=== PATIENT | male | born 1955 | race Caucasian/White ===

== ENCOUNTER 2018-10-30 07:58 | Inpatient (IN) ==
[2018-10-30] MEDS ORDERED: NS 1,000 ML ONE (08:30)
[2018-10-30] MEDS ORDERED: NS 1,000 ML IV ONE (08:50)
[2018-10-30] MEDS ORDERED: PROTONIX 80 MG in NS 80 ML IV ONE (08:50)
--- NOTE | 2018-10-30 08:51 | PROVIDER DOCUMENTATION ---
HPI-Abdominal Pain/GI Problem - General Chief Complaint: GI Bleed Stated Complaint: PASSING BLOOD DR ELIZABETH MEETING HIM Time Seen by Provider: 10/30/18 08:26 Allergies/Adverse Reactions: Patient Allergies Allergy/AdvReac Type Severity Reaction Status Date / Time midazolam HCl * [From Versed] Allergy Mild dysphoria Verified 10/30/18 08:37 Home Medications: Home Medication List Medication Instructions Recorded Confirmed Last Taken Type Losartan [Cozaar] 50 mg PO DAILY 11/22/12 10/30/18 02/28/16 History Lansoprazole [Prevacid] 30 mg DAILY 02/28/16 10/30/18 02/28/16 History Allopurinol [Zyloprim] 300 mg PO DAILY 10/30/18 10/30/18 Unknown History Hydrocodone/Acetaminophen [[place] 1 ea PO Q6HR PRN 10/30/18 10/30/18 Unknown History 5-325 Tablet] Warfarin [Coumadin] 7.5 mg PO QHS 10/30/18 10/30/18 10/29/18 History - History of Present Illness-ABD Nature of Presenting Problems: 63 yo male, 2 weeks s/p Mitral Valve replacement at [facility] on coumadin 7.5 mg po daily, complains of acute onset of BRBPR with clots. Patient has some mild generalized abdominal pain and light headedness. No n/v. 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 Elizabeth who is meeting him here Abdominal Pain Onset Location: reports: generalized abdomen Pain Radiation: reports: no radiation Quality of Pain: reports: aching Severity in ED: reports: mild Onset/Duration: reports: 1-3 hours ago Timing: reports: still present Activities at Onset: reports: light activity Exposure to sick contacts?: No Modifying Factors: improves with: nothing Associated Symptoms: reports: nausea Last BM: this morning Dark Stools Present?: reports: bright red blood Rectal Bleeding: reports: bleeding without stool, blood mixed with stool # of Diarrhea Episodes: 3 Rectal Pain: reports: none Emesis Description: reports: none Bruising or Bleeding Gums?: Yes Similar Symptoms Previously?: No Recently seen or treated by another doctor?: Yes (CT surgery at [facility]) Review of Systems - Adult - REVIEW OF SYSTEMS - ADULT Constitutional: reports: no symptoms reported Eyes: reports: no symptoms reported Ears, Nose, Mouth & Throat: reports: no symptoms reported Cardiovascular: reports: no symptoms reported Respiratory: reports: no symptoms reported Gastrointestinal: reports: no symptoms reported Genitourinary: reports: no symptoms reported Musculoskeletal: reports: no symptoms reported Integumentary: reports: no symptoms reported Neurological: reports: no symptoms reported Psychiatric: reports: no symptoms reported Endocrine: reports: no symptoms reported Hematologic/Lymphatic: reports: no symptoms reported Allergic/Immunologic: reports: no symptoms reported All Other Systems: Reviewed and Negative Past History - Adult - PAST MEDICAL HISTORY-ADULT Review of Records: reports: Old Records Reviewed, Nursing Assessment Review, Medications Reviewed, Social history reviewed & non-contributory. Major Childhood Illnesses: reports: denies history Cardiovascular: reports: A-Fib, HTN, heart valve problem, hyperlipidemia Respiratory: reports: denies history Gastrointestinal: reports: denies history Obstetrical/Gynecological: reports: denies history Genitourinary: reports: denies history Musculoskeletal: reports: denies history Neurological: reports: denies history Endocrine/Immune: reports: denies history Other Conditions: reports: denies history - PRIOR SURGERIES/PROCEDURES Surgical/Procedure History: reports: other (Heart valve replacement at [facility] 2 wek s ago) - IMMUNIZATION STATUS Childhood Immunizations: UTD Flu Vaccine: UTD - FAMILY HISTORY Family History: reviewed, not pertinent - SOCIAL HISTORY Smoking: non-smoker Substance Use: none/never Alcohol Use Frequency: rarely Living Situation: family Physical Exam-General - PHYSICAL EXAM-ADULT Initial Vital Signs Reviewed: Yes (VSSAF) - CONSTITUTIONAL General Appearance: appears well, alert, anxious - EYES Eyes: PERRL/EOMI, pink conjunctivae - HEAD, EARS, NOSE, MOUTH & THROAT HENMT: normocephalic/atraumatic, moist mucous membranes, normal ENT inspection, pharynx normal - NECK Neck: non-tender, full range of motion, supple, normal inspection - RESPIRATORY Respiratory: lungs clear, normal breath sounds, no pleuratic chest pain, no respiratory distress, no accessory muscle use, other (Midline sternotomy incision healing well, epigastric wounds from chest tubes oozing serosanguionous discharge, but no redness/pain) - CARDIOVASCULAR Cardiovascular: normal peripheral pulses, regular rate, rhythm, no edema, other (metallic click present) - GASTROINTESTINAL (ABDOMEN) Abdominal Exam: non tender, soft, no organomegaly, abnormal bowel sounds (hyperactive) - LYMPHATIC Lymphatic: no adenopathy - MUSCULOSKELETAL Back Exam: normal inspection Extremity: normal range of motion, non-tender, normal gait, normal inspection, no pedal edema, no calf tenderness - SKIN Integumentary: normal color, normal turgor, warm/dry - NEUROLOGIC Neurologic: spa associate II-XII nml as tested, grossly normal, no motor/sensory deficits - PSYCHIATRIC Psych/Mental Status: normal mood/affect, normal thought content, normal thought process, oriented x 3 Progress - PLAN OF CARE/RESULTS Progress/Plan/Lab Results: Vital Signs - 8 hr 10/30/18 08:02 Temperature 97.9 F Pulse Rate 81 Respiratory Rate 22 Blood Pressure 132/84 O2 Sat by Pulse Oximetry 99 Orders Category Date Time Status Admit - [facility] Routine AdmDCTranf 10/30/18 08:33 Active CHEST-PORTABLE [RAD] Stat Exams 10/30/18 08:30 Ordered CBC WITH DIFF [HEME] Stat Lab 10/30/18 08:21 Results COMPREHENSIVE METABOLIC PANEL [CHEM] Stat Lab 10/30/18 08:32 Received OCCULT BLOOD DIAGNOSTIC [STOOL] Urgent Lab 10/30/18 08:21 Received PROTIME WITH INR [COAG] Stat Lab 10/30/18 08:21 Received PTT [COAG] Stat Lab 10/30/18 08:21 Received TYPE & SCREEN [BBK] Stat Lab 10/30/18 08:21 Received 0.9% Sodium Chloride Inj [Ns] 1,000 ml Med 10/30/18 08:30 Discontinued .ROUTE As directed Result Diagrams: 10/30/18 08:21 10/30/18 08:21 - REASSESSMENT Reassessment #1 Time Reassessed: 09:24 Status: improving (GIven IVF and protonix. Seen on arrival by Dr. Elizabeth, who is admitting and has consulted with Dr. Knott and Franky.) - EKG 1 Time of EKG reading by physician:: 09:25 EKG Read and Signed by:: Tej Lozano EKG Interpretation (*Must complete 3 of following elements*): Abnormal Rate: 78 Rhythm: nsr [place]: normal QRS: other (left hemiblock, biatrial enlargement, early transition) MS Interval: normal ST Wave: normal Departure - Departure Date of Disposition Decision: 10/30/18 Time of Disposition Decision: 09:26 DIAGNOSIS: Anticoagulated on Coumadin GI bleeding Qualifiers: GI bleed type/associated pathology: unspecified gastrointestinal hemorrhage type Qualified Code(s): K92.2 - Gastrointestinal hemorrhage, unspecified Disposition: ADMITTED INPATIENT 09 Certified Medical Emergency: Emergent Condition: Fair - Critical Care Note This patient required my direct & personal management of CC.: No Attestation - Physician/ PASCUAL Attestation Patient care was provided by Advanced Practice Provider:: No The physician spent face to face time with patient:: Yes Advanced Practice Provider documentation review:: Supervising physician onsite and consulted in the evaluation and care of this patient. The physician did have a face to face encounter with the patient.
--- NOTE | 2018-10-30 08:54 | Diag Imaging Result Doc PS360 ---
EXAM: CHEST-PORTABLE INDICATION: Recent surgery TECHNIQUE: One view COMPARISON: 09/14/2018 FINDINGS: The lungs are grossly clear. There is no discrete pleural fluid collection or pneumothorax. Median sternotomy wires and a prosthetic heart valve are noted. Cardiac silhouette is within normal limits. Central vasculature is unremarkable. IMPRESSION: No evidence of acute pathology by plain radiograph. Electronically signed by Brendon Nguyen 10/30/2018 8:52 AM
[2018-10-30 08:56] LABS: BASO# 0.11 X1000 (0.0-0.2); BASO% 1.1 % (0.0-0.8); EOS# 1.36 X1000 (0.0-0.7); EOS% 13.2 % (0.0-10.0); HEMATOCRIT 40.3 % (42.0-52.0); HEMOGLOBIN 13.1 g/dL (14.0-18.0); IMM GRAN# 0.07 X1000 (0.0-0.04); IMM GRAN% 0.7 % (0.0-0.5); LYMPH# 1.26 X1000 (1.2-3.4); LYMPH% 12.3 % (20.5-51.1); MCH 27.9 PG (27-31); MCHC 32.5 g/dL (33-37); MCV 85.9 FL (81-99); MONO% 7.8 % (1.7-9.3); MPV 8.9 FL (7.4-10.4); NEUT# 6.67 X1000 (1.4-6.5); NEUT% 64.9 % (42.2-75.2); PLT 444 X1000 (130-400); RBC 4.69 XMIL (4.7-6.1); RDW 14.6 % (11.5-14.5); WBC 10.27 X1000 (4.8-10.8)
[2018-10-30 09:07] LABS: INR 4.37; PROTIME 44.7 Seconds (11.0-16.0); PTT 96.9 Seconds (22.3-41.8)
[2018-10-30 09:11] LABS: AGAP 12; ALB/GLOB RATIO 1.7; ALKALINE PHOSPHATASE 90 U/L (32-122); BUN 23 mg/dL (8-22); CALCIUM 9.5 mg/dL (8.8-10.2); CHLORIDE 105 mmol/L (98-107); COSMO 287; CREATININE 1.2 mg/dL (0.7-1.2); ESTIMATED GFR > 60; GLUCOSE 96 mg/dL (70-104); GOT 25 U/L (10-34); GPT 37 U/L (10-44); POTASSIUM 4.8 mmol/L (3.5-5.1); SODIUM 142 mmol/L (136-145); TCO2 25 mmol/L (25-35); TOTAL BILIRUBIN 0.55 mg/dL (0.20-1.00); TOTAL PROTEIN 6.4 g/dL (6.3-8.3)
[2018-10-30] MEDS ORDERED: VITAMIN K SUBQ SCH (09:45)
[2018-10-30] MEDS ORDERED: NEXIUM IV ONE (10:00)
[2018-10-30] MEDS ORDERED: NS IV ONE (10:00)
[2018-10-30 10:01] LABS: EOS 12 % (1-10); LYMPHS 16 % (21-51); MONO 9 % (1-9); SEGS 63 % (42-75)
[2018-10-30 10:02] LABS: ANISOCYTOSIS 1+; MICROCYTOSIS 1+; POIKILOCYTOSIS 1+; TARGET CELLS 1+
[2018-10-30] MEDS: D5 NS 1,000 ML IV SCH ×2 (10:07→20:05)
[2018-10-30] MEDS: NEXIUM 80 MG in NS 90 ML IV SCH ×3 (11:26→20:23)
[2018-10-30 11:51] LABS: HEMATOCRIT 33.7 % (42.0-52.0); HEMOGLOBIN 10.7 g/dL (14.0-18.0)
[2018-10-30] MEDS: DILAUDID IV PRN ×2 (11:56→17:31)
[2018-10-30 11:57] LABS: INR 3.24; PROTIME 35.3 Seconds (11.0-16.0)
--- NOTE | 2018-10-30 12:53 | CARDIOLOGY CONSULTATION ---
DATE: 10/30/2018 INDICATION: History of mechanical mitral valve, GI bleeding. 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 He presented for evaluation of painless blood per rectum that began this morning. He has not had any abdominal pain. He had a recent mechanical mitral valve replacement earlier this month in [place]. He has a history of PE with a filter placement, as well as a history of atrial fibrillation status post ablation. He denies any chest pain or shortness of breath. PAST MEDICAL HISTORY: 1. Significant for mitral valve replacement. He originally had mitral valve prolapse. Subsequently had a bout of endocarditis resulting in an ultimate mitral valve repair. This ultimately became stenosed, and he had a mitral valve replacement with a 29 mm Medtronic mechanical valve by Dr. Thang Hernandez October 18. 2. Atrial fibrillation status post pulmonary venous isolation procedure in June [address] Herrera. 3. History of pulmonary embolism, as well as DVTs. 4. Hypertension. 5. Hyperlipidemia. SOCIAL HISTORY: He is . His is at the bedside. 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 He does not smoke. FAMILY HISTORY: Significant for hypertension. REVIEW OF SYSTEMS: A 10 system review of systems is negative, except for those mentioned in HPI. PHYSICAL EXAMINATION: Vital Signs: He is afebrile, heart rate 77, blood pressure 125/74. General: He is in no acute distress. HEENT: Oropharynx is moist. Normal dentition. Eye examination is pink conjunctivae. White sclerae. Neck: Examination shows no obvious thyromegaly or thyroid tenderness. Cardiovascular: He sounds to be in a regular rate and rhythm. He has a mechanical crisp S1. He has no lower extremity edema. He has warm and well perfused extremities. Chest: Exam is clear bilaterally. He has no increased work of breathing. He has a well-healing sternotomy. Abdomen: Soft, nontender. Again, he has some well-healing post valve replacement wounds in his abdomen. Bowel sounds are present. Skin: Exam is warm and dry throughout without any rashes. Neurological: He is moving all extremities well. He has no lateralizing deficits. Psychiatric: He is alert, oriented, pleasant. Normal mood and affect. PERTINENT DATA: His chest x-ray shows no evidence of acute chest pathology. His lab data shows white count of 10.2, hematocrit 33. His platelet count is 444. His hematocrit on presentation was 40. His sodium is 142, potassium 4.8, BUN 23, creatinine is 1.2 and his albumin is 4. His INR is 3.24; presenting INR was 4.4. 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 He presents for a gastrointestinal bleed. PLAN: Presently we will check serial INR's as well as CBCs. He received some vitamin K as well as 1 dose of FFP. We will likely stop any further doses of vitamin K. Currently he has 20 mg subcutaneous q. 6 hours ordered. We will check an INR today at 2 p.m., as well as a CBC. If his INR drops essentially below 3, we will likely start initiating a heparin infusion. He received 1 dose of vitamin K 20 mg subcutaneous at 10 o'clock this morning. cc: MD Tucker Olson MD
[2018-10-30] MEDS: ATIVAN IV PRN ×2 (13:41→23:14)
[2018-10-30 14:50] LABS: BASO# 0.07 X1000 (0.0-0.2); BASO% 0.9 % (0.0-0.8); EOS# 0.94 X1000 (0.0-0.7); EOS% 12.5 % (0.0-10.0); HEMATOCRIT 33.6 % (42.0-52.0); HEMOGLOBIN 10.8 g/dL (14.0-18.0); IMM GRAN# 0.05 X1000 (0.0-0.04); IMM GRAN% 0.7 % (0.0-0.5); LYMPH% 13.3 % (20.5-51.1); MCH 27.8 PG (27-31); MCHC 32.1 g/dL (33-37); MCV 86.6 FL (81-99); MONO# 0.48 X1000 (0.11-0.59); MONO% 6.4 % (1.7-9.3); NEUT# 4.96 X1000 (1.4-6.5); NEUT% 66.2 % (42.2-75.2); PLT 361 X1000 (130-400); RBC 3.88 XMIL (4.7-6.1); RDW 14.6 % (11.5-14.5)
[2018-10-30 15:10] LABS: INR 3.34; PROTIME 36.2 Seconds (11.0-16.0)
[2018-10-30] MEDS ORDERED: VITAMIN K SUBQ ONE (16:51)
[2018-10-30 17:22] LABS: HEMATOCRIT 34.2 % (42.0-52.0); HEMOGLOBIN 10.9 g/dL (14.0-18.0)
--- NOTE | 2018-10-30 20:43 | EKG Report ---
Test Performed on : 10/30/2018 09:19:34 AM Test Reason : GI bleed, recent cardiac surgery Blood Pressure : / mmHG Vent. Rate : 078 BPM Atrial Rate : 078 BPM P-R Int : 198 ms QRS Dur : 124 ms QT Int : 412 ms P-R-T Axes : 025 -54 048 degrees QTc Int : 469 ms Normal sinus rhythm. Possible Left atrial enlargement Left anterior fascicular block Abnormal ECG When compared with ECG of 28-FEB-2016 12:57, Criteria for Inferior infarct are no longer present Unconfirmed Result
[2018-10-30 20:48] LABS: INR 2.78; PROTIME 31.3 Seconds (11.0-16.0)
[2018-10-30 20:50] LABS: BASO% 1.1 % (0.0-0.8); EOS# 1.25 X1000 (0.0-0.7); EOS% 13.7 % (0.0-10.0); HEMATOCRIT 34.6 % (42.0-52.0); HEMOGLOBIN 11.2 g/dL (14.0-18.0); IMM GRAN# 0.03 X1000 (0.0-0.04); IMM GRAN% 0.3 % (0.0-0.5); LYMPH# 1.24 X1000 (1.2-3.4); LYMPH% 13.6 % (20.5-51.1); MCH 28.6 PG (27-31); MCHC 32.4 g/dL (33-37); MCV 88.3 FL (81-99); MONO# 0.63 X1000 (0.11-0.59); MONO% 6.9 % (1.7-9.3); MPV 8.9 FL (7.4-10.4); NEUT# 5.85 X1000 (1.4-6.5); NEUT% 64.4 % (42.2-75.2); PLT 394 X1000 (130-400); RBC 3.92 XMIL (4.7-6.1); RDW 14.8 % (11.5-14.5)
[2018-10-30 21:10] LABS: EOS 16 % (1-10); LARGE PLATELETS OCCASIONAL; LYMPHS 12 % (21-51); MONO 5 % (1-9); SEGS 67 % (42-75)
[2018-10-30] MEDS ORDERED: HEPARIN IV PRN (21:21)
[2018-10-30] MEDS ORDERED: HEPARIN IV ONE ×2 (21:21→21:30)
--- NOTE | 2018-10-30 21:52 | GASTROENTEROLOGY CONSULTATION ---
DATE: 10/30/2018 INITIAL NOTE: The patient came in after a mitral valve replacement and anticoagulation slightly hyper-coagulated, having rectal bleeding. He had a history of diverticular bleed and diverticulitis and diverticular resection in 2004, I think. I spoke to Dr. Valles who did a colonoscopy more recently and the colonoscopy was normal. He presented with initially bright red blood followed by several small, what appear to be dark and clotted blood. He has received 1 FFP and 20 mg of 1 g of vitamin given subcu. I spoke to Dr. Knott, the dispatch associate. The aim is to keep the INR between 2.5 and 3.5. It is currently 3.4. He is going to have another repetition at 2 o'clock and if it is below 2.5 times, he would be on heparin. I just saw his small bowel movement of maroon clotted blood. Most likely diverticular bleed due to over anticoagulation. Should stop on its own. He is already on Prevacid. Never had an upper GI bleed. Most likely, we will just observe and transition to heparin. We are not planning to do any endoscopy since we cannot do anything much with diverticular bleed other than if it needs a diagnosis in the event of torrential active bleed. However, we can always keep the anticoagulation slightly down to stop the brisk bleeding. Dr. Caal is the surgeon who is on board. I am the GI and Dr. Knott is the dispatch associate. We are all in sink at this plan. I will continue to follow. Detail note to follow. cc: MD Tucker Miramontes MD [facility]
[2018-10-30] MEDS: AMBIEN PO PRN (22:05)
[2018-10-30] MEDS: HEPARIN 25,000 UNITS/D5W 25,000 UNIT/250 ML IV.SOLN IV SCH (22:26)
[2018-10-31] MEDS: DILAUDID IV PRN ×2 (02:04→08:45)
[2018-10-31] MEDS: NEXIUM 80 MG in NS 90 ML IV SCH ×2 (06:17→16:35)
[2018-10-31] MEDS: D5 NS 1,000 ML IV SCH ×2 (06:18→15:10)
[2018-10-31 06:49] LABS: AGAP 9; BUN 17 mg/dL (8-22); CALCIUM 7.9 mg/dL (8.8-10.2); CHLORIDE 107 mmol/L (98-107); COSMO 281; ESTIMATED GFR > 60; GLUCOSE 126 mg/dL (70-104); POTASSIUM 4.2 mmol/L (3.5-5.1); SODIUM 139 mmol/L (136-145); TCO2 23 mmol/L (25-35)
[2018-10-31 07:04] LABS: BASO# 0.08 X1000 (0.0-0.2); BASO% 0.9 % (0.0-0.8); EOS# 1.17 X1000 (0.0-0.7); EOS% 12.9 % (0.0-10.0); HEMATOCRIT 29.6 % (42.0-52.0); HEMOGLOBIN 9.4 g/dL (14.0-18.0); IMM GRAN# 0.04 X1000 (0.0-0.04); IMM GRAN% 0.4 % (0.0-0.5); LYMPH# 1.22 X1000 (1.2-3.4); LYMPH% 13.5 % (20.5-51.1); MCH 27.6 PG (27-31); MCHC 31.8 g/dL (33-37); MCV 86.8 FL (81-99); MONO# 0.52 X1000 (0.11-0.59); MONO% 5.8 % (1.7-9.3); MPV 9.1 FL (7.4-10.4); NEUT# 6.01 X1000 (1.4-6.5); NEUT% 66.5 % (42.2-75.2); PLT 436 X1000 (130-400); RBC 3.41 XMIL (4.7-6.1); RDW 14.7 % (11.5-14.5); WBC 9.04 X1000 (4.8-10.8)
[2018-10-31 07:10] LABS: INR 2.18; PROTIME 25.9 Seconds (11.0-16.0)
[2018-10-31 09:11] LABS: BASO# 0.09 X1000 (0.0-0.2); BASO% 0.9 % (0.0-0.8); EOS# 0.94 X1000 (0.0-0.7); EOS% 9.5 % (0.0-10.0); HEMOGLOBIN 9.5 g/dL (14.0-18.0); IMM GRAN# 0.05 X1000 (0.0-0.04); IMM GRAN% 0.5 % (0.0-0.5); LYMPH# 0.92 X1000 (1.2-3.4); LYMPH% 9.3 % (20.5-51.1); MCH 27.7 PG (27-31); MCHC 31.7 g/dL (33-37); MCV 87.5 FL (81-99); MONO# 0.59 X1000 (0.11-0.59); MPV 9.1 FL (7.4-10.4); NEUT# 7.31 X1000 (1.4-6.5); NEUT% 73.8 % (42.2-75.2); PLT 411 X1000 (130-400); RBC 3.43 XMIL (4.7-6.1); RDW 14.6 % (11.5-14.5)
[2018-10-31 10:05] LABS: INR 1.9; PROTIME 23.2 Seconds (11.0-16.0)
--- NOTE | 2018-10-31 10:25 | CARDIOLOGY PROGRESS NOTE ---
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 He is still passing some blood in his stool. He has no pain complaints. PHYSICAL EXAMINATION: Vital Signs: Patient is afebrile. His heart rate is 90, blood pressure 115/72. General: He is in no acute distress. Cardiovascular: He sounds to be in a regular rate and rhythm. I hear a mechanical S1. He has no lower extremity edema. Chest: His chest sounds clear bilaterally. No increased work of breathing. Abdomen: Soft, nontender. PERTINENT DATA: White count 9.9 hematocrit is 30. His admitting hematocrit was 40, low was 29.6. His platelet count is 411,000. His INR is 2.1. His BUN and creatinine are 17 and 1.0 respectively. 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 PLAN: He is on a heparin drip. Coumadin has been stopped. He had a 10 point hematocrit drop since presentation. We are awaiting final GI recommendations as far as scoping. If he is not going to have a scope, we can resume the Coumadin. If it is unclear or if he will need a scope, we will continue to hold Coumadin. I will discuss this with Dr. Bernal later on today. cc: MD Tucker Olson MD
[2018-10-31] MEDS: ATIVAN IV PRN ×2 (11:24→15:10)
[2018-10-31 11:59] LABS: HEMOGLOBIN 8.3 g/dL (14.0-18.0)
[2018-10-31 12:07] LABS: INR 1.86; PROTIME 22.8 Seconds (11.0-16.0)
[2018-10-31 12:13] LABS: PTT 87.7 Seconds (22.3-41.8)
[2018-10-31] MEDS ORDERED: VITAMIN K SUBQ ONE ×2 (13:06→19:45)
[2018-10-31 18:00] LABS: HEMATOCRIT 29.7 % (42.0-52.0); HEMOGLOBIN 9.5 g/dL (14.0-18.0)
[2018-10-31 18:06] LABS: INR 1.53; PROTIME 19.6 Seconds (11.0-16.0)
[2018-10-31] MEDS: AMBIEN PO PRN (21:03)
[2018-10-31] MEDS: HEPARIN 25,000 UNITS/D5W 25,000 UNIT/250 ML IV.SOLN IV SCH (21:04)
[2018-11-01] MEDS: NEXIUM 80 MG in NS 90 ML IV SCH ×3 (00:39→11:06)
[2018-11-01] MEDS: D5 NS 1,000 ML IV SCH ×3 (01:41→21:34)
[2018-11-01 06:13] LABS: BASO# 0.07 X1000 (0.0-0.2); BASO% 0.9 % (0.0-0.8); HEMATOCRIT 27.3 % (42.0-52.0); HEMOGLOBIN 8.8 g/dL (14.0-18.0); IMM GRAN# 0.05 X1000 (0.0-0.04); IMM GRAN% 0.6 % (0.0-0.5); LYMPH# 0.99 X1000 (1.2-3.4); LYMPH% 12.1 % (20.5-51.1); MCH 27.7 PG (27-31); MCHC 32.2 g/dL (33-37); MCV 85.8 FL (81-99); MONO# 0.63 X1000 (0.11-0.59); MONO% 7.7 % (1.7-9.3); MPV 8.7 FL (7.4-10.4); NEUT# 5.52 X1000 (1.4-6.5); NEUT% 67.7 % (42.2-75.2); PLT 367 X1000 (130-400); RBC 3.18 XMIL (4.7-6.1); RDW 14.3 % (11.5-14.5); WBC 8.16 X1000 (4.8-10.8)
[2018-11-01 06:45] LABS: INR 1.26; PROTIME 16.8 Seconds (11.0-16.0)
[2018-11-01] MEDS: DILAUDID IV PRN ×3 (07:59→19:53)
[2018-11-01] MEDS ORDERED: GOLYTELY PO ONE (09:20)
[2018-11-01] MEDS: ATIVAN IV PRN (10:27)
[2018-11-01] MEDS ORDERED: FLEET ENEMA PR ONE (11:57)
[2018-11-01 12:09] LABS: HEMOGLOBIN 10.5 g/dL (14.0-18.0)
[2018-11-01 12:10] LABS: HEMATOCRIT 32.6 % (42.0-52.0)
[2018-11-01] MEDS ORDERED: DIPRIVAN 1% ONE ×2 (12:12→12:30)
[2018-11-01] MEDS ORDERED: XYLOCAINE-MPF 2% ONE (12:12)
[2018-11-01] MEDS ORDERED: EPINEPHRINE SYRINGE ONE (13:38)
--- NOTE | 2018-11-01 14:05 | ENDOSCOPY OPERATIVE NOTE ---
[facility] ENDOSCOPY OPERATIVE NOTE , PATIENT: Brendon Hector ADMISSION DATE: 11/01/2018 MR#: [id number] : 1955 [id number] EGD PROCEDURE REPORT PROCEDURE DATE: 11/01/2018 SURGEON: Korey Valles MD STATUS: inpatient CORE WORKER: Marge Salinas and Francois Giles PREOPERATIVE DIAGNOSIS: The patient is a 63 yr old male here for an EGD due to hematochezia and acut e post hemorrhagic anemia. PROCEDURE PERFORMED: EGD, diagnostic MEDICATIONS: Per Anesthesia TOPICAL ANESTHETIC: none CONSENT: The patient understands the risks and benefits of the procedure and understands that these r isks include, but are not limited to: sedation, allergic reaction, infection, perforation and/or bleeding. Alternative means of evaluation and treatment include, among others: physical exam, x-rays, and/or surgical intervention. The patient elects to proceed with this endoscopic procedure. HISORY AND PHYSICAL: 11/01/2018 function. Hand hygiene and appropriate measures for infection prevention was taken. After the risks, benefits and alternatives of the procedure were thoroughly explained, Informed consent was verified, confirmed and timeout was successfully executed by the treatment team. The patient was anesthetized with topical anesthesia and the [id number] ([id number]) and [id number] ([id number]) endoscope was introduced through the mouth and advanced to the seco nd portion of the duodenum. Retroflexion was performed in the stomach and revealed no abnormalities. The gastroscope was then slowly withdrawn and removed. ESOPHAGUS: There was a 3cm segment of Moser's esophagus found. The length of circumferential [place] tt's was 1cm ([place] C1) and the length of Maximal extent of Moser's was 3cm ([place] M3). There was no nodular mucosa noted in the Moser's segment. The esophagus was otherwise normal. PERTINENT NEGATIVES: There was no evidence of hiatal hernia, ulcer, tumor and varices. STOMACH: The mucosa of the stomach appeared normal. DUODENUM: The duodenal mucosa showed no abnormalities. SPECIMENS REMOVED: No ADVERSE EVENTS: There were no complications. POSTOPERATIVE DIAGNOSIS: 1. There was a 3cm segment of Moser's esophagus found 2. The esophagus was otherwise normal 3. The mucosa of the stomach appeared normal 4. The duodenal mucosa showed no abnormalities RECOMMENDATIONS: Continue to colonoscopy procedure REPEAT EXAM: Korey Valles MD eSigned: Korey Valles MD 11/01/2018 2:05 PM cc: PATIENT NAME: Brendon Hector MR#: [id number]
--- NOTE | 2018-11-01 14:16 | ENDOSCOPY OPERATIVE NOTE ---
[facility] ENDOSCOPY OPERATIVE NOTE , PATIENT: Brendon Hector ADM DATE: 11/01/2018 MR #: [id number] : 1955 COLONOSCOPY PROCEDURE REPORT PROCEDURE DATE: 11/01/2018 SURGEON: Korey Valles MD STATUS: inpatient CORPORATE SECURITY OFFICER: Marge Salinas and Francois Giles PREOPERATIVE DIAGNOSIS: The patient is a 63 yr old male here for a colonoscopy due to anal bleeding, anemia, non-specific, and Anemia secondary to acute GI bleeding.. PROCEDURE PERFORMED: Submucosal injection, any substance Colonoscopy with control of bleeding MEDICATIONS: Per Anesthesia PREP TYPE: GoLytely
[2018-11-01] MEDS ORDERED: KEFZOL 1 GM/D5W 1 GM/50 ML IVPB ONE (14:18)
--- NOTE | 2018-11-01 17:17 | GASTROENTEROLOGY CONSULTATION ---
DATE: 11/01/2018 REASON FOR CONSULTATION: Rectal bleeding. HISTORY OF PRESENT ILLNESS: This is a 63-year-old white male known to our practice. His last colonoscopy was in February 2018 with findings of 1 polyp in the cecum, 3 polyps in the ascending colon and diverticulosis. He was recommended to have a followup colonoscopy in 5 years. Patient reports having recent mitral valve replacement on October 18. He was discharged on Coumadin and Lovenox. He has been following with the [facility] regarding his INR. Proof Load Mechanic wanted a goal INR of 2.5 to 3.5. Patient reports Thursday seeing some blood in the stool, and then on Thursday he had multiple liquid bloody stools. He was admitted to the hospital for further evaluation. Patient had mitral valve replacement on October [address] [facility]. He had an initial mitral valve repair in 2003. The patient denies abdominal pain. He has had multiple bloody liquid stools over the last 2 days. PAST MEDICAL HISTORY: 1. Mitral valve replacement on October [address] [facility]. 2. Atrial fibrillation. 3. History of pulmonary embolism and DVTs. 4. Hypertension. 5. Hyperlipidemia. PAST SURGICAL HISTORY: Mitral valve repair 2003, mitral valve replacement 10/18/2018. ALLERGIES: Versed causing dysphoria. HOME MEDICATIONS: Zyloprim 300 mg daily, [place] 5/325 one every 6 hours as needed, Prevacid 30 mg daily, Cozaar 50 mg daily, Coumadin 7.5 mg every night. SOCIAL HISTORY: Patient is . 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 No tobacco use. REVIEW OF SYSTEMS: Per history of present illness. PHYSICAL EXAMINATION: Vital Signs: Temperature 98.4 degrees, pulse 87, respirations 20, blood pressure 127/80. General: Patient is awake and alert in no acute distress. HEENT: Normocephalic atraumatic. Pupils equal, round, reactive to light. Sclerae are nonicteric. Cardiovascular: Regular rate and rhythm. Recent mechanical mitral valve replacement. Respiratory: Lung sounds essentially clear. Abdomen: Soft. Some distention. Midline chest scar healing from recent mitral valve replacement. Extremities: No lower extremity edema noted. DIAGNOSTIC RESULTS: Laboratory: Hematology: WBC 8.16, hemoglobin 8.8, hematocrit 27.3, MCV 85.8, platelet 367,000. Coagulation: Protime 16.8, INR 1.26, PTT 75.7. Chemistry: Sodium 139, potassium 4.2, chloride 107, CO2 23, BUN 17, creatinine 1.0, glucose 126, calcium 7.9. Imaging: Chest x-ray showed no evidence of acute pathology. ASSESSMENT: 1. Gastrointestinal bleed. 1. Recent mitral valve replacement. 2. Anticoagulation. 3. History of colon polyps and diverticulosis. PLAN: Continue to monitor hemoglobin and hematocrit. The patient has received 2 units of packed red blood cells and 1 unit of FFP. We have prepped the patient with 2 L of GoLYTELY for EGD, colonoscopy today. Coumadin has been held prior to procedure. I have discussed EGD and colonoscopy with the patient along with benefits and risks, and he wishes to proceed. Further plans to be made according to findings. I have discussed this case with Dr. Valles. Thank you for this consultation. Dictated by CHRISTIE Denny for Korey Valles MD cc: CHRISTIE Hampton MD Hugh C. Nabers, MD
--- NOTE | 2018-11-01 18:07 | CARDIOLOGY PROGRESS NOTE ---
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 He has been receiving some benzodiazepines for some mild anxiety. OBJECTIVE: Vital signs: He is afebrile. His heart rate is 88, blood pressure 127/79. General: He is no acute distress. Cardiovascular: He sounds to be in a regular rate and rhythm. He has no murmurs. He has no S3. He has no lower extremity edema. Chest: Clear bilaterally. No increased work of breathing. Abdomen: Soft, nontender. PERTINENT DATA: His white count is 8.1. His hematocrit is 32 after a transfusion. Platelet count 367,000. His INR is 1.2. 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 Presented with a GI bleed. PLAN: Presently he is undergoing endoscopy. We will continue him on heparin infusion for the time being. cc: MD Tucker Olson MD
[2018-11-01] MEDS: HEPARIN 25,000 UNITS/D5W 25,000 UNIT/250 ML IV.SOLN IV SCH (21:35)
[2018-11-01] MEDS: AMBIEN PO PRN (21:36)
[2018-11-02 06:18] LABS: INR 1.15; PROTIME 15.7 Seconds (11.0-16.0)
[2018-11-02 06:21] LABS: BASO# 0.06 X1000 (0.0-0.2); BASO% 0.9 % (0.0-0.8); EOS# 0.95 X1000 (0.0-0.7); HEMATOCRIT 24.1 % (42.0-52.0); HEMOGLOBIN 7.8 g/dL (14.0-18.0); IMM GRAN# 0.03 X1000 (0.0-0.04); IMM GRAN% 0.5 % (0.0-0.5); LYMPH# 0.64 X1000 (1.2-3.4); LYMPH% 10.1 % (20.5-51.1); MCH 28.2 PG (27-31); MCHC 32.4 g/dL (33-37); MONO# 0.54 X1000 (0.11-0.59); MONO% 8.5 % (1.7-9.3); MPV 9.2 FL (7.4-10.4); PLT 332 X1000 (130-400); RBC 2.77 XMIL (4.7-6.1); RDW 14.4 % (11.5-14.5); WBC 6.32 X1000 (4.8-10.8)
[2018-11-02 06:25] LABS: AGAP 7; ALB/GLOB RATIO 1.5; ALKALINE PHOSPHATASE 61 U/L (32-122); BUN 7 mg/dL (8-22); CALCIUM 8.2 mg/dL (8.8-10.2); CHLORIDE 109 mmol/L (98-107); COSMO 281; CREATININE 1.1 mg/dL (0.7-1.2); ESTIMATED GFR > 60; GLUCOSE 124 mg/dL (70-104); GOT 15 U/L (10-34); GPT 16 U/L (10-44); POTASSIUM 3.9 mmol/L (3.5-5.1); SODIUM 141 mmol/L (136-145); TCO2 25 mmol/L (25-35)
[2018-11-02] MEDS: PRILOSEC PO SCH (07:08)
[2018-11-02] MEDS: HEPARIN 25,000 UNITS/D5W 25,000 UNIT/250 ML IV.SOLN IV SCH ×2 (07:09→20:59)
[2018-11-02] MEDS: D5 NS 1,000 ML IV SCH ×3 (08:03→20:59)
[2018-11-02] MEDS ORDERED: NS 500 ML ONE (09:33)
[2018-11-02] MEDS: ATIVAN IV PRN ×2 (09:48→21:12)
[2018-11-02 15:52] LABS: BASO# 0.08 X1000 (0.0-0.2); BASO% 1.1 % (0.0-0.8); EOS# 1.03 X1000 (0.0-0.7); EOS% 13.8 % (0.0-10.0); HEMATOCRIT 30.1 % (42.0-52.0); HEMOGLOBIN 9.7 g/dL (14.0-18.0); IMM GRAN# 0.05 X1000 (0.0-0.04); IMM GRAN% 0.7 % (0.0-0.5); LYMPH# 1.11 X1000 (1.2-3.4); LYMPH% 14.9 % (20.5-51.1); MCH 27.9 PG (27-31); MCHC 32.2 g/dL (33-37); MCV 86.5 FL (81-99); MONO# 0.64 X1000 (0.11-0.59); MONO% 8.6 % (1.7-9.3); MPV 9.1 FL (7.4-10.4); NEUT# 4.54 X1000 (1.4-6.5); NEUT% 60.9 % (42.2-75.2); PLT 396 X1000 (130-400); RBC 3.48 XMIL (4.7-6.1); RDW 14.9 % (11.5-14.5); WBC 7.45 X1000 (4.8-10.8)
--- NOTE | 2018-11-02 19:44 | CARDIOLOGY PROGRESS NOTE ---
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 He is frustrated at the extended length of stay that he is experiencing. I tried to empathize with the patient regarding this and discussed with him the results of his GI evaluation, as well as his ongoing cardiology care. We have currently been recommended per Dr. Valles, to consider initiating Coumadin in the next 24 to 48 hours based on his clinical situation. The patient was quite irate about the blood transfusion that he got this morning, feeling that O-positive blood was not acceptable given his B-positive status. I tried to discuss with him that he was cross-matched and it was an acceptable sample, but he was still irate about this. He expressed wishes to go home and manage himself with Lovenox and Coumadin. I informed him of the extreme risk, I thought, associated with this considering his bleed and his need for more observation. He seemed to not care about this. I reported that I would not be willing to discharge him nor write him a prescription for Lovenox or Coumadin if that was a course of action that he was going to take. I discussed the case at length with his . She is currently planning on coming up to the hospital to discuss this with him. I discussed the situation at length with the nurses as well. Dr. Caal, who is the admitting physician, has been informed of his current situation, and it sounds like Dr. Caal has had conversations with the patient on multiple occasions today. I do not have further cardiology recommendations at this time other than continuing the heparin and restarting Coumadin when acceptable from a GI perspective. cc: MD Tucker Olson MD MTDD
--- NOTE | 2018-11-02 20:29 | GASTROENTEROLOGY PROGRESS NOTE ---
DATE: 11/02/2018 SUBJECTIVE: At the time of my rounds at lunchtime today patient was asleep in no acute distress. I spoke with his . There has been no further evidence of active GI bleeding. His hemoglobin and hematocrit did drop some today and he received additional unit of packed red blood cells today. 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 Otherwise normal EGD. Again there has been no sign of active bleeding today. Patient is currently on heparin drip. OBJECTIVE: Vital Signs: Temperature 99 degrees, pulse 87, respirations 19, blood pressure 116/70. General: The patient was asleep in no acute distress. I spoke with his . LABORATORY: Hematology. WBC 7.45, hemoglobin 9.7, hematocrit 30.1, MCV 86.5, platelet 396,000. Coagulation. Pro time 15.7, INR 1.15, PTT 68.3. Chemistry. Sodium 141, potassium 3.9, chloride 109, CO2 25, BUN 7, creatinine 1.1, glucose 124, total bilirubin 0.60, AST 15, ALT 16, alkaline phosphatase 61. ASSESSMENT AND PLAN: 1. Recent gastrointestinal bleed. 2. Recent mitral valve replacement on October 18. 3. Anticoagulation with heparin. Coumadin is currently on hold. 4. Ulcer in the ascending colon that was treated. Continue to monitor for any further signs of active bleeding. Monitor hemoglobin and hematocrit. Transfuse further packed red blood cells as needed. Would recommend holding Coumadin for 24 to 48 hours. Follow recommendations on resuming Coumadin per cardiology. We will continue to follow. I have discussed this case with Dr. Valles. Dictated by CHRISTIE Denny for Korey Valles MD cc: CHRISTIE Hampton MD Hugh C. Nabers, MD
[2018-11-02] MEDS: DILAUDID IV PRN ×2 (21:15→23:20)
[2018-11-02] MEDS: TYLENOL PO PRN (21:24)
[2018-11-03] MEDS: DILAUDID IV PRN ×4 (04:48→23:51)
[2018-11-03] MEDS: D5 NS 1,000 ML IV SCH ×3 (04:49→12:26)
[2018-11-03] MEDS: PRILOSEC PO SCH (06:00)
[2018-11-03] MEDS ORDERED: COUMADIN PO ONE (09:22)
[2018-11-03 09:23] LABS: HEMATOCRIT 28.8 % (42.0-52.0); HEMOGLOBIN 9.7 g/dL (14.0-18.0)
--- NOTE | 2018-11-03 11:18 | Diag Imaging Result Doc PS360 ---
EXAM: CHEST-PORTABLE 11/03/2018 HISTORY: dyspnea, cough TECHNIQUE: AP portable at 1110 COMMENT: There are some ill-defined opacities in both lung bases which have worsened slightly since 10/30/2018. There are sternotomy wires. The heart size is at the upper limits of normal. IMPRESSION: Bibasilar atelectasis versus pneumonia. Electronically signed by Jaycob Andrews 11/03/2018 11:16 AM
[2018-11-03] MEDS: HEPARIN 25,000 UNITS/D5W 25,000 UNIT/250 ML IV.SOLN IV SCH ×2 (12:25→16:11)
--- NOTE | 2018-11-03 14:37 | CARDIOLOGY PROGRESS NOTE ---
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 He has developed a cough since yesterday. PHYSICAL EXAMINATION: Vital Signs: He is afebrile, heart rate of 83, blood pressure 164/95, his O2 saturation is 97% on room air. General: He is in no acute distress. CARDIOVASCULAR: He sounds to be in a regular rate and rhythm. I do not hear any obvious murmurs. He has no S3. He has no lower extremity edema. Chest: Sounds relatively clear. He has no increased work of breathing. Abdomen: Soft, nontender, nondistended. He has no obvious organomegaly. Skin: Warm and dry throughout. PERTINENT DATA: His lab data shows a hematocrit of 28. 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 PLAN: His Coumadin has been resumed. He has INRs ordered. He continues on a heparin drip. I will check a chest x-ray to evaluate his cough. In addition, we will evaluate an echo to evaluate his recent mitral valve replacement considering it has not been imaged since implant earlier this month. cc: MD Tucker Olson MD
[2018-11-03] MEDS: PHENERGAN WITH CODEINE LIQUID PO PRN (17:43)
[2018-11-03] MEDS: TYLENOL PO PRN ×2 (18:47→23:52)
--- NOTE | 2018-11-03 19:39 | GASTROENTEROLOGY PROGRESS NOTE ---
DATE: 11/03/2018 SUBJECTIVE: Patient was sitting on the side of the bed in no acute distress. He states he has had no further evidence of active bleeding since his endoscopy procedures. His Coumadin has been restarted. He remains on heparin drip. He is following with Dr. Knott, Cardiology. OBJECTIVE: Vital Signs: Temperature 99.0, pulse 100, respirations 21, blood pressure 137/66. General: Patient is awake and alert, in no acute distress. No reports of active bleeding. LABORATORY: Hematology: Hemoglobin 9.7, hematocrit 28.8. ASSESSMENT AND PLAN: 1. Recent gastrointestinal bleed. 2. Recent mitral valve replacement on 10/18/2018. 3. Anticoagulation. Patient is currently on heparin drip and Coumadin has been restarted today. Will keep strict watch on PT/INR until it becomes therapeutic, and transition from his heparin over to full Coumadin dose. Dr. Knott is following. Patient had findings of an ulcer that was treated in the ascending colon. Will monitor for further signs of active bleeding, monitor hemoglobin and hematocrit, and transfuse further packed red blood cells as needed. I have discussed this case with Dr. Valles. Dictated by CHRISTIE Denny for Korey Valles MD cc: CHIRSTIE Hampton MD Hugh C. Nabers, MD
[2018-11-03] MEDS: AMBIEN PO PRN (21:26)
[2018-11-04] MEDS: D5 NS 1,000 ML IV SCH ×4 (02:35→17:32)
[2018-11-04] MEDS: TYLENOL PO PRN ×3 (04:05→17:05)
[2018-11-04] MEDS ORDERED: VANCOMYCIN IV PER PHARMACY MISC SCH (06:30)
[2018-11-04] MEDS ORDERED: LEVAQUIN 500 MG/D5W 500 MG/100 ML IVPB IV SCH (06:30)
[2018-11-04] MEDS: PRILOSEC PO SCH (06:31)
[2018-11-04 06:42] LABS: INR 1.08; PROTIME 14.9 Seconds (11.0-16.0)
[2018-11-04] MEDS: DILAUDID IV PRN ×4 (06:51→21:12)
--- NOTE | 2018-11-04 07:16 | Diag Imaging Result Doc PS360 ---
EXAM: CHEST-PORTABLE 11/04/2018 HISTORY: cough/ increased temp TECHNIQUE: AP portable at 0627 COMMENT: There is a left-sided PICC line with its tip just above the right atrium. There is ill-defined opacity in the left lower lobe which appears worse than on 11/03/2018. IMPRESSION: Worsening atelectasis or pneumonia left lower lobe. Electronically signed by Jaycob Andrews 11/04/2018 7:15 AM
[2018-11-04] MEDS ORDERED: VANCOMYCIN 2,200 MG in NS 500 ML IV ONE (08:00)
[2018-11-04] MEDS: HEPARIN 25,000 UNITS/D5W 25,000 UNIT/250 ML IV.SOLN IV SCH ×2 (08:36→13:42)
[2018-11-04] MEDS: PHENERGAN WITH CODEINE LIQUID PO PRN (08:37)
--- NOTE | 2018-11-04 08:44 | ECHO REPORT ---
ORDER DATE: 11/03/2018 ECHOCARDIOGRAPHIC MEASUREMENTS: 1. Septal thickness 1.3. 2. Left ventricular internal diameter diastole 4.1. 3. Posterior wall thickness 1.3. 4. Left ventricular internal diameter in systole 2.6. 5. Aortic root 3.5. SUMMARY: 1. Technically difficult study due to limited acoustic window quality. Intravenous echo contrast agent Optison was utilized to enhance endocardial definition. 2. Aortic valve is without evidence of structural abnormality and opens adequately on 2- dimensional images. Peak gradient across the aortic valve is less than 10 mmHg. Mitral valve has been replaced with mechanical prosthesis which appears to be well seated. Mean gradient across the mitral valve is 4.7 mmHg. Doppler suggests adequate mitral valve prosthetic function. Tricuspid valve without evidence of structural abnormality. Pulmonic valve is not well demonstrated. Aortic root is normal in size. 3. Normal left ventricular chamber size with mild concentric left hypertrophy is demonstrated. Estimated left ventricular ejection fraction appears to be at least 65%. No regional wall motion abnormalities are evident. Left atrium is [id number] enlarged. Right atrium and right ventricle are normal in size with grossly preserved right ventricular systolic function. 4. No pericardial effusion. 5. Inferior vena cava not well demonstrated. CONCLUSIONS: 1. Technically difficult study. 2. Mechanical mitral valve prosthesis functioning adequately by Doppler. 3. Mild to moderate pulmonic insufficiency. 4. Mild concentric left ventricular hypertrophy with estimated left ventricular ejection fraction at least 65%. 5. Mild to moderate left atrial enlargement. cc: MD Jamel Yusuf MD Hugh C. Nabers, MD
[2018-11-04 08:48] LABS: BASO# 0.05 X1000 (0.0-0.2); BASO% 0.6 % (0.0-0.8); EOS% 8.6 % (0.0-10.0); HEMATOCRIT 27.5 % (42.0-52.0); IMM GRAN# 0.02 X1000 (0.0-0.04); IMM GRAN% 0.2 % (0.0-0.5); LYMPH# 0.56 X1000 (1.2-3.4); LYMPH% 6.9 % (20.5-51.1); MCH 28.2 PG (27-31); MCHC 32.7 g/dL (33-37); MCV 86.2 FL (81-99); MONO# 0.53 X1000 (0.11-0.59); MONO% 6.5 % (1.7-9.3); MPV 8.8 FL (7.4-10.4); NEUT# 6.28 X1000 (1.4-6.5); NEUT% 77.2 % (42.2-75.2); PLT 374 X1000 (130-400); RBC 3.19 XMIL (4.7-6.1); WBC 8.14 X1000 (4.8-10.8)
[2018-11-04 09:12] LABS: AGAP 9; ALB/GLOB RATIO 1.3; ALKALINE PHOSPHATASE 63 U/L (32-122); BUN 10 mg/dL (8-22); CHLORIDE 105 mmol/L (98-107); CK PROFILE 53 U/L (24-204); COSMO 277; CREATININE 1.2 mg/dL (0.7-1.2); ESTIMATED GFR > 60; GLUCOSE 136 mg/dL (70-104); GOT 17 U/L (10-34); GPT 16 U/L (10-44); POTASSIUM 3.4 mmol/L (3.5-5.1); SODIUM 138 mmol/L (136-145); TCO2 24 mmol/L (25-35); TOTAL PROTEIN 5.4 g/dL (6.3-8.3)
[2018-11-04] MEDS: MAXIPIME 2 GM in NS 100 ML IV SCH ×2 (10:50→18:21)
[2018-11-04] MEDS: ZYVOX 600 MG/D5W 600 MG/300 ML IVPB IV SCH ×2 (11:55→22:37)
--- NOTE | 2018-11-04 12:10 | GASTROENTEROLOGY PROGRESS NOTE ---
DATE: 11/04/2018 SUBJECTIVE: The patient is sitting up and currently getting blood drawn for blood culture. Last night, he had a high-grade temperature; T-max was 103.1 degree Fahrenheit. Since then, a chest x- ray was done, which showed consolidation in the left lower lobe suggestive of possible left lower pneumonia or atelectasis. Other than fever, he has not had any GI symptoms. He has not had any evidence of active bleeding. No bright red blood per rectum. OBJECTIVE: Abdomen is soft, nontender. Bowel sounds audible. LABORATORIES: Reviewed which showed hemoglobin stable at 9.7, hematocrit 28.8. INR today is 1.08. IMPRESSION: 1. Acute lower gastrointestinal bleed. 2. Anemia secondary to lower gastrointestinal bleed. 3. Status post mitral valve replacement, on Coumadin and heparin bridge. 4. Left lower lobe pneumonia. Workup is in progress to check for sepsis. PLAN: At this point, from GI perspective, no new suggestion except to advance Coumadin to get the desired PT/INR. Then we can safely discontinue heparin. He is on antibiotic now. We will have to be watchful because the antibiotic may cause jump in his PT/INR as well. For the rest of medical treatment, as per team. We will follow peripherally. cc: MD Tucker Tong MD MTDD
--- NOTE | 2018-11-04 13:18 | INFECTIOUS DISEASE CONSULT REP ---
DATE: 11/04/2018 DISCUSSION: The patient recently had mitral valve replacement with a mechanical valve. He was on, among other medications, Coumadin, and he had a GI bleed, which was the cause of him coming into the hospital. He has been having fever. He coughs occasionally. His laboratory studies show a CBC with a white count of 8140, hemoglobin 9, platelet count 374,000. Creatinine is 1.2. GFR is greater than 60. Liver function studies are normal. Blood cultures are pending. Stool for Clostridium difficile antigen and toxin is negative. Chest x-ray shows left lower lobe atelectasis/pneumonia. PAST MEDICAL HISTORY/REVIEW OF SYSTEMS: Eyes and Ears: The patient has decreased hearing, and he does wear glasses. Neck: No stiffness. Respiratory: The patient occasionally does cough. He does not bring up sputum. GI: The patient has had a few loose stools, but his Clostridium difficile for toxin and antigen is negative. Genitourinary: The patient does not have dysuria or flank pain. GI: See present illness. Neurologic: He does not have any seizures or loss of motor or sensory function. PREVIOUS HOSPITALIZATIONS AND OPERATIONS: He has had mitral valve replacement, streptococcal mitral valve endocarditis, mitral valve repair, and most recently had mitral valve replacement with a mechanical valve done at [facility]. He previously has had GI bleeding and diverticulitis, with subsequent surgical removal of part of the colon. He also, during that hospitalization, had Clostridium difficile diarrhea. The patient has had deep venous thrombosis, and has had an inferior vena cava filter placed. He has had pulmonary emboli, atrial fibrillation, and cardiac ablation. The patient has had prostate biopsy. MEDICAL ILLNESSES: Positive for hypertension, gout, benign prostatic hypertrophy, and he has had prostate biopsy. He has also had diverticulitis, which required partial colon resection. He has had deep venous thrombosis, which required placement of an inferior vena cava filter. He has had pulmonary emboli and atrial fibrillation. He has had cardiac ablation. 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 He has not had urinary tract infection. FAMILY HISTORY: Positive for diabetes mellitus, hypertension, and cancer. 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 He is . He has a cat as a pet. He does not smoke cigarettes or abuse drugs. He occasionally has an alcoholic beverage. ALLERGIES: The patient has allergy to midazolam. HOME MEDICATIONS: Consist of allopurinol, hydrocodone, Prevacid, Cozaar, and Coumadin. PHYSICAL EXAMINATION: Vital Signs: Temperature was 103 earlier, now it is 99.1, pulse 100, respirations 20, blood pressure 95/48. The patient weighs 184 pounds. General: This is a somewhat ill-appearing, middle-aged male. He is in no acute distress. HEENT: He is wearing glasses. He can hear my spoken words, but the patient did tell me that he has a decrease in his hearing. He does not have any white patches in his mouth. Neck: No meningismus. Thorax: The patient's sternotomy incision is intact. It is not erythematous. Cardiovascular: Heart rate is regular. I did not hear a murmur. Lungs: Clear to auscultation. Abdomen: Soft and nontender. Neurologic: The patient is alert. He can move his extremities. There is no tremor. His memory as regarding his medical history is intact. There is no tremor. Integument: No rash noted. CONCLUSION: The patient has a left lower lobe pneumonia. RECOMMENDATIONS: I have discontinued the vancomycin and Levaquin, and instead I put the patient on Zyvox and cefepime. Thank you for the consult. cc: MD Tucker Vides MD
--- NOTE | 2018-11-04 14:31 | INFECTIOUS DISEASE CONSULT REP ---
DATE: 11/04/2018 ADDENDUM: I am going to check the patient's immunoglobulin levels in view of him having 3 to 4 infections in the past year. cc: MD Tucker Vides MD
[2018-11-04] MEDS ORDERED: KLOR-CON PO ONE ×3 (17:53→22:00)
[2018-11-04] MEDS ORDERED: ZYVOX PO SCH (18:00)
[2018-11-04] MEDS ORDERED: COUMADIN PO SCH ×2 (21:00)
[2018-11-04] MEDS ORDERED: KLOR-CON PO SCH (22:00)
[2018-11-04 22:27] LABS: URINE SOURCE CLEAN CATCH
[2018-11-04 22:30] LABS: BILIRUBIN URINE NEGATIVE (NEGATIVE); BLOOD URINE NEGATIVE (NEGATIVE); COLOR YELLOW; GLUCOSE URINE NEGATIVE (NEGATIVE); KETONE URINE NEGATIVE (NEGATIVE); LEUKOCYTES URINE NEGATIVE (NEGATIVE); NITRITE URINE NEGATIVE (NEGATIVE); PROTEIN URINE 50 mg/dL (NEGATIVE); SP GRAVITY URINE 1.031; TURBIDITY URINE CLEAR (CLEAR); UR EPITHELIAL CELLS <10 /HPF (<10); URINE BACTERIA NEGATIVE /HPF; URINE RBC <10 /HPF (<10); URINE WBC <10 /HPF (<10); UROBILINOGEN URINE NORMAL (NORMAL)
[2018-11-04] MEDS: LOVENOX SUBQ SCH (22:38)
[2018-11-05] MEDS: D5 NS 1,000 ML IV SCH ×3 (01:53→16:19)
[2018-11-05] MEDS: MAXIPIME 2 GM in NS 100 ML IV SCH ×3 (01:54→16:19)
[2018-11-05] MEDS: TYLENOL PO PRN ×2 (01:59→11:30)
[2018-11-05] MEDS ORDERED: VANCOMYCIN 1,650 MG in NS 250 ML IV SCH (02:00)
[2018-11-05] MEDS: DILAUDID IV PRN ×3 (02:21→18:56)
[2018-11-05] MEDS ORDERED: NS NEB INH SCH (03:00)
[2018-11-05] MEDS ORDERED: ATROVENT NEB INH PRN (03:02)
[2018-11-05] MEDS ORDERED: OFIRMEV 1000 MG/ISOTONIC SOLN 1,000 MG/100 ML BOTTLE IV PRN (03:30)
[2018-11-05] MEDS ORDERED: ZOFRAN IV PRN (03:32)
[2018-11-05] MEDS ORDERED: SODIUM CHLORIDE 0.9% INJ PRN (03:33)
[2018-11-05] MEDS ORDERED: PHENERGAN IV PRN (03:33)
[2018-11-05 04:01] LABS: BASO# 0.06 X1000 (0.0-0.2); BASO% 1.1 % (0.0-0.8); EOS# 0.52 X1000 (0.0-0.7); HEMATOCRIT 24.3 % (42.0-52.0); HEMOGLOBIN 7.9 g/dL (14.0-18.0); IMM GRAN# 0.02 X1000 (0.0-0.04); IMM GRAN% 0.4 % (0.0-0.5); INR 1.14; LYMPH# 0.54 X1000 (1.2-3.4); LYMPH% 10.3 % (20.5-51.1); MCH 28.3 PG (27-31); MCHC 32.5 g/dL (33-37); MCV 87.1 FL (81-99); MONO# 0.39 X1000 (0.11-0.59); MONO% 7.5 % (1.7-9.3); MPV 8.9 FL (7.4-10.4); NEUT# 3.69 X1000 (1.4-6.5); NEUT% 70.7 % (42.2-75.2); PLT 307 X1000 (130-400); PROTIME 15.6 Seconds (11.0-16.0); RBC 2.79 XMIL (4.7-6.1); WBC 5.22 X1000 (4.8-10.8)
[2018-11-05 04:25] LABS: AGAP 10; ALB/GLOB RATIO 1.2; ALBUMIN 2.7 g/dL (3.5-5.0); ALKALINE PHOSPHATASE 52 U/L (32-122); BUN 11 mg/dL (8-22); CALCIUM 7.9 mg/dL (8.8-10.2); CHLORIDE 106 mmol/L (98-107); COSMO 277; ESTIMATED GFR > 60; GLUCOSE 100 mg/dL (70-104); GOT 25 U/L (10-34); GPT 16 U/L (10-44); POTASSIUM 3.5 mmol/L (3.5-5.1); SODIUM 139 mmol/L (136-145); TCO2 23 mmol/L (25-35); TOTAL BILIRUBIN 0.51 mg/dL (0.20-1.00); TOTAL PROTEIN 4.9 g/dL (6.3-8.3)
[2018-11-05] MEDS: ATROVENT NEB INH SCH ×5 (04:30→19:30)
[2018-11-05] MEDS: XOPENEX NEB INH SCH ×5 (04:30→19:30)
--- NOTE | 2018-11-05 05:10 | EKG Report ---
Test Performed on : 11/05/2018 02:50:33 AM Test Reason : cat call Blood Pressure : / mmHG Vent. Rate : 093 BPM Atrial Rate : 093 BPM P-R Int : 214 ms QRS Dur : 118 ms QT Int : 378 ms P-R-T Axes : 070 -43 037 degrees QTc Int : 469 ms Sinus rhythm. with 1st degree AV block. Left axis deviation Cannot rule out Inferior infarct , age undetermined Abnormal ECG When compared with ECG of 30-OCT-2018 09:19, (Unconfirmed) No significant change was found Confirmed by Bernabe Swanson MD ([id number]) on 11/07/2018 8:22:24 PM
--- NOTE | 2018-11-05 06:17 | Diag Imaging Result Doc PS360 ---
CT HEAD W/O CONTRAST - 11/05/2018 INDICATION: possible stroke COMPARISON: None FINDINGS: The ventricles and sulci are normal in size and contour. No intracranial mass or hemorrhage. The skull is intact. The sinuses mastoids and middle ears are clear. IMPRESSION: Negative exam. This exam was performed using automated exposure control, adjustment of mA or kV according to patient size, and/or use of iterative reconstruction technique Electronically signed by Wil Patton 11/05/2018 6:15 AM
[2018-11-05] MEDS ORDERED: NS 250 ML ONE (06:37)
[2018-11-05] MEDS: PRILOSEC PO SCH (07:38)
--- NOTE | 2018-11-05 08:20 | Diag Imaging Result Doc PS360 ---
EXAM: CHEST-PORTABLE INDICATION: Left pneumonia TECHNIQUE: One view COMPARISON: 11/04/2018 FINDINGS: The left PICC line is in stable position. The left lower lobe ill-defined opacity behind the heart border is approximately stable. Central vasculature appears to be slightly increased as compared to the previous study suggesting at least mild pulmonary venous congestion. No other new consolidation is identified. Cardiac silhouette is stable. IMPRESSION: Slight increase in central vascular markings suggesting at least mild pulmonary venous congestion. Stable chest, otherwise. Electronically signed by Brendon Nguyen 11/05/2018 8:18 AM
[2018-11-05] MEDS: ZYVOX 600 MG/D5W 600 MG/300 ML IVPB IV SCH (09:57)
[2018-11-05] MEDS: LOVENOX SUBQ SCH (09:57)
[2018-11-05] MEDS ORDERED: ZITHROMAX 500 MG/NS 500 MG/250 ML IVPB IV SCH (11:00)
--- NOTE | 2018-11-05 11:27 | Diag Imaging Result Doc PS360 ---
CT THORAX W/O CONTRAST - 11/05/2018 INDICATION: pneumonia COMPARISON: Chest x-ray 11/05/2018 FINDINGS: There are sternotomy wires and there is a mitral valve prosthesis. Heart size is top normal with no pericardial effusion. There are cholecystectomy clips. Otherwise upper abdominal images are unremarkable. There is no adenopathy. There are small bilateral pleural effusions that are approximately symmetric. There is nonspecific focal infiltrate in the left lower lobe right behind the heart. There is some minimal dependent atelectasis in the right lung base. There is some mild interstitial pulmonary edema with thickened interlobular septae in the bases. There are mild degenerative changes of the spine. No acute or suspicious bony lesion. IMPRESSION: 1. Mild pulmonary edema. Small bilateral pleural effusions. 2. Nonspecific retrocardiac left lower lobe infiltrate or area of atelectasis. There is also some dependent atelectasis in the right lower lobe. This exam was performed using automated exposure control, adjustment of mA or kV according to patient size, and/or use of iterative reconstruction technique Electronically signed by Wil Patton 11/05/2018 11:25 AM
[2018-11-05 15:25] LABS: HEMATOCRIT 25.9 % (42.0-52.0); HEMOGLOBIN 8.3 g/dL (14.0-18.0)
--- NOTE | 2018-11-05 15:32 | INFECTIOUS DISEASE PROGRESS NO ---
DATE: 11/05/2018 PRESENT ILLNESS: The patient has a left lower lobe pneumonia. MEDICATIONS: The patient is receiving Zyvox and cefepime. PHYSICAL EXAMINATION: Vital Signs: Earlier today, the temperature was 102 degrees, now it is 97.9, pulse 74, respirations 12, blood pressure 115/73. Generally: This is an ill-appearing middle-aged male. He seems to be in some slight respiratory distress. Head/eyes/ears/nose/throat: He can hear my spoken words and see near objects. I did not see any white patches on his tongue. Neck: No meningismus. Lungs: There were left lower lobe rales. The right lung was clear. Cardiovascular: Heart rate is regular. Abdomen: Soft and nontender. Neurologic: The patient is alert. He can move his extremities. There is no tremor. LAB AND X-RAY: The chest x-ray today shows stable left lower lobe opacity along with pulmonary venous congestion. CT scan of the head showed no abnormality. CBC shows a white count of 5220, hemoglobin 7.9, and platelet count 307,000. Creatinine is 1. GFR is greater than 60. Blood culture and sputum culture are pending. An echocardiogram showed no vegetations on valves. A CT pulmonary angiogram shows the pneumonia is spreading but no pulmonary emboli. ASSESSMENT AND PLAN: The patient has left lower lobe pneumonia. I am going to continue cefepime and Zyvox. I have also added azithromycin. I have ordered Legionella and pneumococcal urinary antigens as well. The patient's blood cultures and sputum cultures are pending. COMORBIDITIES: At this time I do not see any definite comorbidity. cc: MD Tucker Vides MD [facility]
--- NOTE | 2018-11-05 16:03 | Diag Imaging Result Doc PS360 ---
CT ANGIOGRM PULMONARY ARTERIES - 11/05/2018 INDICATION: pulmonary emboli TECHNIQUE: Axial CT images were obtained after administering intravenous contrast. Coronal MIP images were generated. COMPARISON: 06/09/2014, 11/05/2018 FINDINGS: There is no pulmonary embolism. Stable left central line. Stable mitral valve prosthesis. Heart size remains top normal. Stable small bilateral pleural effusions. There is more extensive infiltrate throughout the left upper and lower lobes. There is some patchy the dependent atelectasis in the right lower lobe. IMPRESSION: Negative for pulmonary embolism. Worsening ill-defined infiltrate throughout the left upper and lower lobes suggestive of multilobar pneumonia. This exam was performed using automated exposure control, adjustment of mA or kV according to patient size, and/or use of iterative reconstruction technique Electronically signed by Wil Patton 11/05/2018 4:00 PM
[2018-11-05 18:09] VITALS: BP 133/79
--- NOTE | 2018-11-09 20:29 | DISCHARGE SUMMARY ---
ADMISSION DATE: 10/30/2018 DISCHARGE DATE: 11/05/2018 DIAGNOSES: 1. Recent mechanical mitral valve replacement, October 18, at [facility]. 2. Chronic anticoagulation therapy with subsequent gastrointestinal bleed. 3. Development of a left-sided pneumonia. HOSPITAL COURSE: The patient is a 63-year-old, white male, known to me for many years. He had a streptococcal endocarditis in the 2004 , and lead to median sternotomy with mitral valve repair. He had done relatively well since that time cardiac-rios. He has had previous bouts of diverticulitis leading to a sigmoid resection. He had an exploratory laparotomy for a small-bowel obstruction with resection of a segment of small bowel. He has had a history of DVT and pulmonary embolus. He has a caval umbrella. 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 He has not been seen here in 2 years. Subsequent to the mitral valve replacement, October 18, he was discharged. He called me the morning of October 30, complaining of bright red blood per rectum. He was seen in the emergency room. His hematocrit at that time was 40 when his ProTime was 46 seconds with INR of 4.8. He was admitted, placed on a heparin drip, Coumadin was stopped. He was given fresh frozen plasma, vitamin K. Over the ensuing 48 hours, his hematocrit drifted down into the 20s. Dr. Bernal of the GI service was consulted, who eventually sent him to Dr. Valles. He did receive a total of 4 units of blood during his hospitalization. Dr. Valles performed EGD, colonoscopy on November 01, revealing a normal upper tract with some esophagitis, but an ulcerated lesion in the cecum that was bleeding. He injected this with epinephrine and cauterized the oozing spots, and did not feel that this was a malignant lesion. Other than this, he has began to develop temperature on November 04, up to 102, 103. Chest x-ray revealed an infiltrate in his left lower lobe. He was placed on Levaquin and vancomycin. This was switched by Infectious Disease, Dr. Cortes, to Zyvox and meropenem. The next night, he again had a temperature on November 04, and code stroke was called. CT scan of the head revealed no evidence of stroke, but was felt this was just a significant febrile episode. He was transferred back to the intensive care unit at this time. He felt that his valve was infected with his high fevers. Cardiology had been consulted early on in his hospitalization and he had a 2D echo that revealed no evidence of valve infection or malfunction. CT scan again performed on November 05, revealed worsening pneumonia more so than the plain films were showing. He was subsequently transferred back to [facility] on the evening of November 05, for continued care, intravenous antibiotics, and maintenance of the GI bleed. His last transfusion, his hematocrit went from 24 to 25, and this was performed on November 05. He will be seen in the office on a p.r.n. basis once discharge is obtained from [facility]. cc: Tucker Caal MD Cardiology Service at [facility] [phone] MTDD
== END 2018-11-05 20:10 | disposition short-term general hospital (02) | DRG 394 ==
LOC: ED 07:58 → EDIPHOLD 09:12 → ICU 10:52 → 4N 11-03 15:00 → ICU 11-05 03:27
PROVIDERS: ADMIT Surgery; ATTEND Surgery
PROC: EN.HEAT (2018-11-01 13:18)
CPT/HCPCS: 36430; 36569; 70450; 71010; 71045; 71250; 71275; 80048; 80053; 81001; 82272; 82550; 82784; 82948; 83605; 84484; 85014; 85018; 85025; 85610; 85730; 86850; 86900; 86901; 86920; 87040; 87070; 87205; 87324; 87449; 87899; 93005; 93010; 93306; 94640; 94761; 94799; 96361; 96365; 96368; 96372; 99285; A9270; C8929; C9113; J0131; J0171; J0456; J0690; J0692; J1170; J1644; J1650; J1956; J2020; J2060; J2405; J2550; J3370; J3430; J7030; J7040; J7042; J7050; P9016; P9017; Q9957; Q9967; S0164; XXXXX